=== PATIENT | male | born 1985 | race Two or more races ===

== ENCOUNTER 2018-08-06 07:54 | Day surgery (SDC) | payer SELFPAY ==
[~2018-08-06 07:54] MED LIST: Lactated Ringers 1,000 ML IV SCH; Lidocaine 2% 5 ML SDV ONE; Midazolam 1 MG/ML 2 ML SDV ONE; Propofol 200 MG/20 ML SDV ONE; fentaNYL 100 MCG/2 ML SDV ONE
--- NOTE | 2018-08-06 08:47 | PCM.PREANE ---
Preanesthetic Assessment - Anesthesia/Transfusion/Family Hx Anesthesia History: No Prior Anesthesia Family History of Anesthesia Reaction: No Transfusion History: No Prior Transfusion(s) - Review of Systems General: No Symptoms Pulmonary: No Symptoms Cardiovascular: No Symptoms Gastrointestinal: No Symptoms Neurological: No Symptoms Other: Reports: None - Physical Assessment NPO Status Date: 08/05/18 O2 Sat by Pulse Oximetry: 97 Respiratory Rate: 18 Vital Signs: Last Vital Signs Temp 97.5 F 08/06/18 08:10 Pulse 58 L 08/06/18 08:10 Resp 18 08/06/18 08:10 BP 112/61 08/06/18 08:10 Pulse Ox 97 08/06/18 08:10 Height: 5 ft 9 in Weight: 65.317 kg ASA Class: 2 Mental Status: Alert & Oriented x3 Airway Class: Mallampati = 2 Dentition: Reports: Normal Dentition ROM/Head Extension: Full Lungs: Clear to Auscultation, Normal Respiratory Effort Cardiovascular: Regular Rate, Regular Rhythm - Allergies Allergies/Adverse Reactions: Allergies Allergy/AdvReac Type Severity Reaction Status Date / Time No Known Allergies Allergy Verified 08/04/18 12:26 - Blood Blood Available: No - Anesthesia Plan Pre-Op Medication Ordered: None - Acknowledgements Anesthesia Type Planned: General Anesthesia Pt an Appropriate Candidate for the Planned Anesthesia: Yes Alternatives and Risks of Anesthesia Discussed w Pt/Guardian: Yes Pt/Guardian Understands and Agrees with Anesthesia Plan: Yes Additional Comments: PMH: reflux and dysphagia, hx of bronchospastic episode once 2 years ago. No hx of asthma or chronic resp dz PLAN: TIVA PreAnesthesia Questionnaire Respiratory History: Reports: Asthma Other Respiratory History: states had asthma 2 years ago- no problems now- no inhaler Gastrointestinal History: Reports: GERD - SUBSTANCE USE Smoking Status *Q: Former Smoker Tobacco Use Within Last Twelve Months: No Recreational Drug Use History: No - HOME MEDS Home Medications: Home Meds Pantoprazole [ProTONIX] 40 mg PO BID 08/04/18 [History] - CURRENT (IN HOUSE) MEDS Current Meds: Current Medications Lactated Ringer's (Ringers, Lactated) 1,000 mls @ 125 mls/hr IV ASDIRECTED OYLA Discontinued Medications Fentanyl (Sublimaze) Confirm Administered Dose 100 mcg .ROUTE .STK-MED ONE Stop: 08/06/18 07:13 Lidocaine (Xylocaine-Mpf 2%) Confirm Administered Dose 5 ml .ROUTE .STK-MED ONE Stop: 08/06/18 07:12 Midazolam HCl (Versed 1 Mg/Ml) Confirm Administered Dose 2 mg .ROUTE .STK-MED ONE Stop: 08/06/18 07:13 Propofol (Diprivan 20 Ml) Confirm Administered Dose 400 mg .ROUTE .STK-MED ONE Stop: 08/06/18 07:12
--- NOTE | 2018-08-06 09:57 | PCM.OPNOTE ---
- General Post-Op/Procedure Note Date of Surgery/Procedure: 08/06/18 Operative Procedure(s): Esophagogastroduodenoscopy with biopsy Pre Op Diagnosis: Persistent dysphagia Post-Op Diagnosis: Mild chronic gastritis. No evidence of esophageal stricture or hiatal hernia. Anesthesia Technique: MAC (ASA I) Primary Surgeon: Car Bassett Condition: Good Free Text/Narrative:: CPT code 02016
[2018-08-06] MEDS ORDERED: Lactated Ringers 1,000 ML IV SCH (10:00)
--- NOTE | 2018-08-06 10:12 | PCM.POSTAN ---
POST ANESTHESIA ASSESSMENT - MENTAL STATUS Mental Status: Alert, Oriented - RESPIRATORY Respiratory Status: Respiratory Rate WNL, Airway Patent, O2 Saturation Stable - CARDIOVASCULAR CV Status: Pulse Rate WNL, Blood Pressure Stable - GASTROINTESTINAL GI Status: No Symptoms - POST OP HYDRATION Hydration Status: Adequate & Stable
--- NOTE | 2018-08-06 10:13 | PCM48HPAN ---
Post Anesthesia Note - EVALUATION WITHIN 48HRS OF ANESTHETIC Vital Signs in Normal Range: Yes Patient Participated in Evaluation: Yes Respiratory Function Stable: Yes Airway Patent: Yes Cardiovascular Function Stable: Yes Hydration Status Stable: Yes Pain Control Satisfactory: Yes Nausea and Vomiting Control Satisfactory: Yes Mental Status Recovered: Yes Resp Rate: 14
--- NOTE | 2018-08-11 07:54 | OR ---
SURGEON: Car Bassett M.D. DATE OF PROCEDURE: 08/06/2018 OPERATION PERFORMED: Esophagogastroduodenoscopy with biopsy. ANESTHESIA: MAC. ASA CLASSIFICATION: I. PREOPERATIVE DIAGNOSIS: Persistent dysphagia. POSTOPERATIVE DIAGNOSIS: Mild chronic gastritis. No evidence of esophageal stricture or spasm. DESCRIPTION OF PROCEDURE: The patient was taken to the endoscopy room and maintained on the endoscopy table in the supine position. Time-out was called for appropriate identification of the patient and procedure. Monitored anesthesia care was provided. The bite block was placed between the patient's teeth. The gastroscope was inserted through the bite block into the oropharynx and advanced without difficulty through the esophagus and stomach and into the duodenum where examination was now carried out in a retrograde fashion. The duodenum shows no acute inflammatory changes or ulcerations. The stomach does show a mild gastritis. Antral biopsies were obtained to look for the presence of Helicobacter pylori. The gastroscope was retroflexed to visualize the proximal stomach. No ulcerations were noted, no tumors were seen, and there was no hiatal hernia noted. The gastroscope was then slowly withdrawn after biopsying the stomach ache. The greater and lesser curvatures were well visualized. Again, no ulcerations were noted. The GE junction was well defined and shows no acute inflammatory changes. The esophagus demonstrated good contractility. No mid or proximal esophageal lesions were identified. The vocal cords were visualized as the scope was withdrawn and noted to move symmetrically. There was no erythema to the vocal cords and no ulcerations were noted. The gastroscope was then removed with the patient having tolerated the procedure well. He was then taken to recovery room in stable condition. HAIDER / JACQUE /[id number]
== END 2018-08-06 10:55 | disposition home or self-care (01) ==
LOC: MW.SDS 07:54
PROVIDERS: ATTEND Surgery
DX: K29.50 Unspecified chronic gastritis without bleeding (principal); K21.9 Gastro-esophageal reflux disease without esophagitis; J45.909 Unspecified asthma, uncomplicated; Z87.891 Personal history of nicotine dependence; Z79.899 Other long term (current) drug therapy
CPT/HCPCS: J2001; J2250; J2704; J3010; J7120